=== PATIENT | female | born 1985 | race Hispanic/Latino ===

== ENCOUNTER 2021-11-05 08:26 | Emergency (ER) | payer OTHER ==
[2021-11-05] MEDS ORDERED: Ibuprofen 200 MG TAB ONE (08:50)
[2021-11-05] MEDS ORDERED: Acetaminophen 500 MG TAB ONE (08:50)
== END 2021-11-05 08:57 | disposition home or self-care (01) ==
LOC: ERS 08:26
DX: N64.4 Mastodynia (principal)
CPT/HCPCS: 99283

== ENCOUNTER 2023-05-02 06:29 | Emergency (ER) | payer OTHER, SELFPAY ==
[2023-05-02] MEDS ORDERED: Acetaminophen 500 MG TAB ONE (06:53)
== END 2023-05-02 06:57 | disposition home or self-care (01) ==
LOC: ERS 06:29
DX: H92.02 Otalgia, left ear (principal); H73.92 Unspecified disorder of tympanic membrane, left ear
CPT/HCPCS: 99282